=== PATIENT | male | born 1945 | race Caucasian/White ===

== ENCOUNTER 2018-12-15 12:57 | Outpatient (CLI) | payer MEDICARE ==
--- NOTE | 2018-12-15 13:37 | RAD ---
TWO VIEWS OF THE CHEST: 12/15/18 COMPARISON: None. HISTORY: Malignant neoplasm of the left lung. FINDINGS: Two views of the chest show a normal sized cardiomediastinal silhouette. The patient is status post s ternotomy. There is no evidence of consolidation, mass, or pleural effusion. There is volume loss in the left thorax which may be from prior surgery. IMPRESSION: No evidence of acute cardiopulmonary disease. POS: [facility]
== END 2018-12-15 12:58 | disposition home or self-care (01) ==
LOC: RAD 12:57
PROVIDERS: ATTEND Thoracic Surgery (Cardiothoracic Vascular Surgery)
DX: C34.12 Malignant neoplasm of upper lobe, left bronchus or lung (principal)
CPT/HCPCS: 71046